=== PATIENT | male | born 1975 | race Caucasian/White ===

== ENCOUNTER 2019-06-19 07:23 | Observation (INO) | payer BC ==
[2019-06-19] MEDS ORDERED: Morphine 4 MG/ML Syringe IVPUSH ONE ×2 (07:36→07:47)
[2019-06-19] MEDS ORDERED: Aspirin 81 MG Tab.Chew PO ONE (07:36)
[2019-06-19] MEDS ORDERED: Ondansetron 4 MG/2 ML SDV IVPUSH ONE (07:39)
[2019-06-19] MEDS: Nitroglycerin 0.4 MG Tab.SL SL PRN ×3 (07:40→07:50)
--- NOTE | 2019-06-19 07:40 | EDM.PDOC ---
ED HPI GENERAL MEDICAL PROBLEM - General Chief Complaint: Chest Pain Stated Complaint: CHEST PAIN, NAUSEA Time Seen by Provider: 06/19/19 07:35 Source of Information: Reports: Patient History Limitations: Reports: No Limitations - History of Present Illness INITIAL COMMENTS - FREE TEXT/NARRATIVE: This is a 44-year-old gentleman who presents to the emergency room with chest pain. Patient states the pain initiated in his abdomen then moved to his chest. Patient states his chest feels like he needs to get gas out. Patient has no history of high blood pressure, diabetes, smoking, family medical history. Patient is on no medications at all. Patient does not take illicit drugs. Complaining of a dull pain to his chest. Onset: Today Duration: Hour(s):, Heavy Location: Reports: Chest Quality: Reports: Dull Severity: Severe Improves with: Reports: None Worsens with: Reports: None Associated Symptoms: Reports: Chest Pain, Nausea/Vomiting. Denies: Diaphoresis , Fever/Chills, Headaches, Loss of Appetite chest Pain Score (Numeric/FACES): 9 - Related Data Allergies Allergy/AdvReac Type Severity Reaction Status Date / Time No Known Allergies Allergy Verified 06/19/19 07:31 Home Meds: Home Meds . [No Known Home Meds] 06/19/19 [History] ED ROS GENERAL - Review of Systems Review Of Systems: See Below Constitutional: Reports: No Symptoms HEENT: Reports: No Symptoms Respiratory: Reports: No Symptoms Cardiovascular: Reports: Chest Pain Endocrine: Reports: No Symptoms GI/Abdominal: Reports: Abdominal Pain : Reports: No Symptoms Musculoskeletal: Reports: No Symptoms Skin: Reports: No Symptoms Neurological: Reports: No Symptoms Psychiatric: Reports: No Symptoms Hematologic/Lymphatic: Reports: No Symptoms Immunologic: Reports: No Symptoms ED EXAM, GENERAL - Physical Exam Exam: See Below Exam Limited By: No Limitations General Appearance: Alert, WD/WN, Anxious, Moderate Distress Eye Exam: Bilateral Eye: Normal Fundi, Normal Inspection, PERRL Ears: Normal External Exam, Normal Canal, Hearing Grossly Normal, Normal TMs Ear Exam: Bilateral Ear: Auricle Normal, Canal Normal, TM normal Nose: Normal Inspection, Normal Mucosa, No Blood Throat/Mouth: Normal Inspection, Normal Lips, Normal Teeth, Normal Gums, Normal Oropharynx, Normal Voice Head: Atraumatic, Normocephalic Neck: Normal Inspection, Supple, Non-Tender Respiratory/Chest: No Respiratory Distress, Lungs Clear, Normal Breath Sounds, No Accessory Muscle Use, Chest Non-Tender Cardiovascular: Normal Peripheral Pulses, Regular Rate, Rhythm, No Edema, No Gallop GI/Abdominal: Normal Bowel Sounds, Soft, Non-Tender, No Organomegaly, No Distention, No Abnormal Bruit, No Mass. No: Guarding, Rigid, Rebound (Male) Exam: Deferred Rectal (Males) Exam: Deferred Back Exam: Normal Inspection, Full Range of Motion Neurological: Alert, Oriented, CN II-XII Intact, Normal Cognition, Normal Gait, Normal Reflexes, No Motor/Sensory Deficits Psychiatric: Normal Affect, Normal Mood Skin Exam: Warm, Dry, Intact, Normal Color Lymphatic: No Adenopathy EKG INTERPRETATION EKG Date: 06/19/19 Time: 07:41 Rhythm: NSR Manquin: Normal P-Wave: Present QRS: Normal QT: Normal Comparison: NA - No Prior EKG EKG Interpretation Comments: And is bradycardia rate 55, early repolarization. No evidence of acute [place] at this time Course - Vital Signs Text/Narrative:: Initial evaluation the patient is a 44-year-old male with no known cardiac history with few risk factors except being a 44-year-old male. Presents to the emergency room with abdominal pain initially then radiating to his chest. Patient says he is in pain at this time dull chest pain. Patient is not diaphoretic. Patient is on no medications at this time. Patient does seem like he is having chest pain. Initially physical exam is negative except for subjective chest pain. Patient is a thin male appears to be in moderate distress. Patient given morphine for pain, aspirin and oxygen. Patient also given Zofran and nitro sublingual. Cardiac work-up has been ensued at this time. Patient's EKG is not acute but does show some early repolarization. Patient is very thin with a BMI of 23.7. Patient evaluated at 7:30 AM. Reevaluation of patient 11:50 AM. Patient is now has pain in his abdomen. CT scan of his chest and abdomen are negative. Patient's LFTs are normal patient' s cardiac enzymes are normal also. I have discussed the case with the hospitalist on-call she has agreed to admit the patient with a diagnosis of intractable abdominal pain. Patient will be admitted to telemetry observation Last Recorded V/S: Last Vital Signs Temp 96.9 F 06/19/19 07:32 Pulse 61 06/19/19 11:25 Resp 16 06/19/19 11:25 BP 129/73 06/19/19 11:25 Pulse Ox 97 06/19/19 11:25 - Orders/Labs/Meds Orders: Active Orders 24 hr Category Date Time Status EKG 12 Lead [EKG Documentation Completion] [RC] ROUTINE Care 06/19/19 07:36 Active EKG Documentation Completion [RC] STAT Care 06/19/19 07:37 Active TROPONIN I [CHEM] Stat Lab 06/19/19 11:04 Received Labs: Laboratory Tests 06/19/19 06/19/19 06/19/19 Range/Units 07:30 07:30 07:30 WBC 9.59 (4.0-11.0) K/uL RBC 4.58 (4.50-5.90) M/uL Hgb 15.2 (13.0-17.0) g/dL Hct 45.7 (38.0-50.0) % MCV 99.8 H (80.0-98.0) fL MCH 33.2 H (27.0-32.0) pg MCHC 33.3 (31.0-37.0) g/dL RDW Std Deviation 46.3 (28.0-62.0) fl RDW Coeff of Ave 13 (11.0-15.0) % Plt Count 214 (150-400) K/uL MPV 10.10 (7.40-12.00) fL Neut % (Auto) 85.1 H (48.0-80.0) % Lymph % (Auto) 9.8 L (16.0-40.0) % Mccreary % (Auto) 4.4 (0.0-15.0) % Eos % (Auto) 0.6 (0.0-7.0) % Baso % (Auto) 0.1 (0.0-1.5) % Neut # (Auto) 8.2 H (1.4-5.7) K/uL Lymph # (Auto) 0.9 (0.6-2.4) K/uL Mccreary # (Auto) 0.4 (0.0-0.8) K/uL Eos # (Auto) 0.1 (0.0-0.7) K/uL Baso # (Auto) 0.0 (0.0-0.1) K/uL Nucleated RBC % 0.0 /100WBC Nucleated RBCs # 0 K/uL INR 1.03 Sodium 139 (136-148) mmol/L Potassium 4.6 (3.5-5.1) mmol/L Chloride 102 (98-107) mmol/L Carbon Dioxide 28.1 (21.0-32.0) mmol/L BUN 19 H (7.0-18.0) mg/dL Creatinine 1.2 (0.8-1.3) mg/dL Est Cr Clr Drug Dosing 94.87 mL/min Estimated GFR (MDRD) > 60.0 ml/min Glucose 150 H (74-106) mg/dL Calcium 8.8 (8.5-10.1) mg/dL Magnesium 1.7 L (1.8-2.4) mg/dL Total Bilirubin 0.4 (0.2-1.0) mg/dL AST 26 (15-37) IU/L ALT 40 (14-63) IU/L Alkaline Phosphatase 83 (46-116) U/L Troponin I < 0.050 (0.000-0.056) ng/mL Total Protein 7.5 (6.4-8.2) g/dL Albumin 4.4 (3.4-5.0) g/dL Globulin 3.1 (2.6-4.0) g/dL Albumin/Globulin Ratio 1.4 (0.9-1.6) Amylase (25-115) U/L Lipase (73-393) U/L 06/19/19 06/19/19 Range/Units 07:30 07:30 WBC (4.0-11.0) K/uL RBC (4.50-5.90) M/uL Hgb (13.0-17.0) g/dL Hct (38.0-50.0) % MCV (80.0-98.0) fL MCH (27.0-32.0) pg MCHC (31.0-37.0) g/dL RDW Std Deviation (28.0-62.0) fl RDW Coeff of Ave (11.0-15.0) % Plt Count (150-400) K/uL MPV (7.40-12.00) fL Neut % (Auto) (48.0-80.0) % Lymph % (Auto) (16.0-40.0) % Mccreary % (Auto) (0.0-15.0) % Eos % (Auto) (0.0-7.0) % Baso % (Auto) (0.0-1.5) % Neut # (Auto) (1.4-5.7) K/uL Lymph # (Auto) (0.6-2.4) K/uL Mccreary # (Auto) (0.0-0.8) K/uL Eos # (Auto) (0.0-0.7) K/uL Baso # (Auto) (0.0-0.1) K/uL Nucleated RBC % /100WBC Nucleated RBCs # K/uL INR Sodium (136-148) mmol/L Potassium (3.5-5.1) mmol/L Chloride (98-107) mmol/L Carbon Dioxide (21.0-32.0) mmol/L BUN (7.0-18.0) mg/dL Creatinine (0.8-1.3) mg/dL Est Cr Clr Drug Dosing mL/min Estimated GFR (MDRD) ml/min Glucose (74-106) mg/dL Calcium (8.5-10.1) mg/dL Magnesium (1.8-2.4) mg/dL Total Bilirubin (0.2-1.0) mg/dL AST (15-37) IU/L ALT (14-63) IU/L Alkaline Phosphatase (46-116) U/L Troponin I (0.000-0.056) ng/mL Total Protein (6.4-8.2) g/dL Albumin (3.4-5.0) g/dL Globulin (2.6-4.0) g/dL Albumin/Globulin Ratio (0.9-1.6) Amylase 56 (25-115) U/L Lipase 110 (73-393) U/L Meds: Medications Discontinued Medications Generic Name Dose Route Start Last Admin Trade Name Freq PRN Reason Stop Dose Admin Aspirin 324 mg 06/19/19 07:36 06/19/19 07:40 Aspirin PO 06/19/19 07:37 324 mg ONETIME ONE Administration Al Hydroxide/Mg Hydroxide 15 0 ml 06/19/19 07:56 06/19/19 07:59 ml/ Metoclopramide HCl 5 mg/ PO 06/19/19 07:57 25 each Lidocaine HCl 5 ml ONETIME ONE Administration Hydromorphone HCl 1 mg 06/19/19 08:11 06/19/19 08:15 Dilaudid IVPUSH 06/19/19 08:12 1 mg ONETIME ONE Administration Metoclopramide HCl 5 mg 06/19/19 09:42 06/19/19 10:05 Reglan IVPUSH 06/19/19 09:43 5 mg ONETIME ONE Administration Morphine Sulfate 4 mg 06/19/19 07:36 06/19/19 07:42 Morphine IVPUSH 06/19/19 07:37 4 mg ONETIME ONE Administration Morphine Sulfate 4 mg 06/19/19 07:47 06/19/19 07:50 Morphine IVPUSH 06/19/19 07:48 4 mg ONETIME ONE Administration Nitroglycerin 0.4 mg 06/19/19 07:36 06/19/19 07:50 Nitrostat SL 0.4 mg Q5M PRN Administration Chest Pain Ondansetron HCl 4 mg 06/19/19 07:39 06/19/19 07:41 Zofran IVPUSH 06/19/19 07:40 4 mg ONETIME ONE Administration Departure - Departure Time of Disposition: 11:52 Disposition: Refer to Observation Condition: Good Clinical Impression: Intractable abdominal pain Referrals: PCP,None [Primary Care Provider] - Forms: ED Department Discharge Sepsis Event Note - Evaluation Sepsis Screening Result: No Definite Risk - Focused Exam Vital Signs: Vital Signs Temp Pulse Resp BP BP Pulse Ox 06/19/19 11:25 61 16 129/73 97 06/19/19 10:06 73 16 152/93 H 99 06/19/19 08:47 42 L 16 141/83 H 93 L 06/19/19 08:02 58 L 20 128/70 98 06/19/19 07:50 142/93 H 06/19/19 07:45 141/88 H 06/19/19 07:40 166/97 H 06/19/19 07:32 96.9 F 57 L 20 159/96 H 99 Date Exam was Performed: 06/19/19 Time Exam was Performed: 11:50 - My Orders Last 24 Hours: My Active Orders 06/19/19 07:36 EKG 12 Lead [EKG Documentation Completion] [RC] ROUTINE 06/19/19 07:37 EKG Documentation Completion [RC] STAT 06/19/19 11:04 TROPONIN I [CHEM] Stat - Assessment/Plan Last 24 Hours: My Active Orders 06/19/19 07:36 EKG 12 Lead [EKG Documentation Completion] [RC] ROUTINE 06/19/19 07:37 EKG Documentation Completion [RC] STAT 06/19/19 11:04 TROPONIN I [CHEM] Stat
[2019-06-19] MEDS ORDERED: Alum Hydrox/Mag Hydrox/Simeth 15 ML, Metoclopramide 5 MG, Lidocaine 2% 5 ML PO ONE ×3 (07:56)
[2019-06-19 08:03] LABS: BLOOD UREA NITROGEN,BUN 19 mg/dL (7.0-18.0); CARBON DIOXIDE,CO2 28.1 mmol/L (21.0-32.0); CHLORIDE,CL 102 mmol/L (98-107); GLUCOSE RANDOM 150 mg/dL (74-106); POTASSIUM,K 4.6 mmol/L (3.5-5.1); SODIUM,NA 139 mmol/L (136-148)
[2019-06-19] MEDS ORDERED: HYDROmorphone 1 MG/ML Syringe IVPUSH ONE (08:11)
--- NOTE | 2019-06-19 08:22 | CR ---
Chest: Portable view of the chest was obtained. Comparison: No prior chest imaging is available. Heart size is normal. Upper mediastinum is normal. Lungs are clear with no acute parenchymal change. Bony structures are grossly intact. Impression: 1. Nothing acute is appreciated on portable chest x-ray. Diagnostic code #1 This report was dictated in MDT
--- NOTE | 2019-06-19 08:57 | CT ---
CT chest Technique: Multiple axial sections were obtained from above the lung apices inferiorly through the lung bases. Intravenous contrast was utilized. Study performed as a pulmonary angiogram protocol. Findings: Pulmonary arteries are well opacified. No filling defects are seen to indicate pulmonary embolism. Mediastinum and hilar region show no adenopathy. Aorta shows no aneurysm. Lungs are clear with no acute parenchymal change. Small portion of the visualized upper abdominal structures appear within normal limits. Bone window settings were reviewed which shows no discrete osseous finding. Impression: 1. No findings pulmonary embolism. 2. Nothing acute is appreciated on other portions of the chest CT exam. Diagnostic code #1 This report was dictated in MDT
[2019-06-19] MEDS ORDERED: Metoclopramide 10 MG/2 ML SDV IVPUSH ONE ×2 (09:42→12:18)
--- NOTE | 2019-06-19 11:20 | CT ---
CT abdomen and pelvis Technique: Multiple axial sections were obtained from above the dome of the diaphragm inferiorly through the pubic symphysis. Intravenous and oral contrast not utilized. There is IV contrast being seen within the kidney collecting systems from recently performed CT chest study. Findings: Visualized lung bases show nothing acute. Noncontrast appearance of the liver shows no focal abnormality. Spleen appears within normal limits. Pancreas shows no discrete abnormality. Adrenal glands show no nodule. Kidneys show no hydronephrosis. Contrast is seen within the collecting systems of both kidneys from recent CT study of the chest. Contrast is noted within nondilated ureters as well as contrast being seen within the bladder. Aorta shows atherosclerotic calcifications without aneurysm. Gallbladder contains no calcified gallstones. No retroperitoneal adenopathy or mesenteric abnormalities are seen. No pelvic mass or adenopathy is seen. No free fluid or inflammatory change is appreciated. Appendix felt to be visualized and is normal in size. Bone window settings were reviewed which show spondylolytic defects at L5-S1 with minimal spondylolisthesis at L5-S1 and mild posterior disc space narrowing at L5-S1. Impression: 1. 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 2. Nothing acute is definitely appreciated on noncontrast CT study of the abdomen and pelvis. Note: Contrast is noted within the kidney collecting systems and ureters from recently performed chest CT study.
[2019-06-19] MEDS ORDERED: Iopamidol 755 MG/ML 500 ML Multipack Bottle IVPUSH STA (11:55)
[2019-06-19] MEDS ORDERED: Pantoprazole 80 MG in Sodium Chloride 0.9% 20 ML IVPUSH ONE (12:05)
[2019-06-19] MEDS ORDERED: Haloperidol Lactate 5 MG/ML SDV IM ONE (12:05)
--- NOTE | 2019-06-19 12:57 | PCM.HP.2 ---
H&P History of Present Illness - General Date of Service: 06/19/19 Admit Problem/Dx: Admission Diagnosis/Problem Admission Diagnosis/Problem Intractable abdominal pain Source of Information: Patient History Limitations: Reports: No Limitations - History of Present Illness Initial Comments - Free Text/Narative: This 44 year old otherwise healthy male presented to the ED today with concerns of abdominal pain which moved to his chest early this morning. He reports the pain started suddenly this morning at 0400 approximately. He reports the pain is a cramping, squeezing that comes and goes, causes him nausea and dry heaving but no vomiting. Pain is located to lower abdomen. No peritoneal signs. He had a normal bowel movement, with no change in color or consistency from normal BMs. He reports the pain moved to mid sternal and feels full and dull in nature. He reports he was diaphoretic and clammy initially. Never had anything like this in the past. Years ago had some heartburn, but none since or recently. He denies alcohol use or illicit drug use. No OTC NSAID use. he reports he eats very clean, no processed foods only vegetables/fruit and lean protein. No recent sick contacts. He denies fevers or chills. No palpitations. No SOB. No urinary concerns. No diarrhea or black or bloody stools. In the ED No leukocytosis noted, INR 1.03, Na 139 K+ 4.6, BUN 19, Cr 1.2. Glucose 150. Mg 1.7. CT abdominal/pelvis negative, CT ang chest negative as well. CXR negative. He was given Morphine, Haldol, Dilaudid, ZOfran, Reglan and Nitro for pain. Reports it is somewhat better and Dilaudid and Relgan helped best. he was also given Protonix and GI cocktail. He will be admitted observation for intractable abdominal pain. chest Pain Score (Numeric/FACES): 9 - Related Data Allergies/Adverse Reactions: Allergies Allergy/AdvReac Type Severity Reaction Status Date / Time No Known Allergies Allergy Verified 06/19/19 07:31 Home Medications: Home Meds . [No Known Home Meds] 06/19/19 [History] Past Medical History HEENT History: Reports: None Cardiovascular History: Reports: None. Denies: CAD, High Cholesterol, Hypertension Respiratory History: Reports: None. Denies: COPD Gastrointestinal History: Reports: None. Denies: GERD Genitourinary History: Reports: None. Denies: Chronic Renal Insuffiency Musculoskeletal History: Reports: None Endocrine/Metabolic History: Reports: None. Denies: Diabetes, Type II, Obesity/ BMI 30+ - Infectious Disease History Infectious Disease History: Reports: None - Past Surgical History GI Surgical History: Reports: Hernia Repair/Other Social & Family History - Family History Family Medical History: Noncontributory - Tobacco Use Smoking Status *Q: Never Smoker - Alcohol Use Alcohol Use History: No - Recreational Drug Use Recreational Drug Use: No H&P Review of Systems - Review of Systems: Review Of Systems: See Below General: Reports: No Symptoms. Denies: Fever, Chills, Malaise HEENT: Reports: No Symptoms. Denies: Headaches, Sinus Congestion, Vertigo Pulmonary: Reports: No Symptoms. Denies: Shortness of Breath Cardiovascular: Reports: No Symptoms. Denies: Chest Pain Gastrointestinal: Reports: Abdominal Pain, Nausea. Denies: Black Stool, Bloody Stool, Constipation, Diarrhea, Vomiting Genitourinary: Reports: No Symptoms. Denies: Dysuria, Frequency, Burning Musculoskeletal: Reports: No Symptoms Skin: Reports: No Symptoms Psychiatric: Reports: No Symptoms Neurological: Reports: No Symptoms Hematologic/Lymphatic: Reports: No Symptoms Immunologic: Reports: No Symptoms Exam - Exam Exam: See Below - Vital Signs Vital Signs: Last Vital Signs Temp 96.9 F 06/19/19 07:32 Pulse 64 06/19/19 12:27 Resp 16 06/19/19 12:27 BP 149/92 H 06/19/19 12:27 Pulse Ox 96 06/19/19 12:27 Weight: 86.183 kg - Exam General: Alert, Oriented, Cooperative, Mild Distress (abdominal pain and nausea) HEENT: Conjunctiva Clear, Mucosa Moist & Holden, Posterior Pharynx Clear Lungs: Clear to Auscultation, Normal Respiratory Effort Cardiovascular: Regular Rate, Regular Rhythm GI/Abdominal Exam: Normal Bowel Sounds, Soft, Tender (lower abdomen) Back Exam: Normal Inspection, Full Range of Motion Extremities: Normal Inspection, Normal Range of Motion, Non-Tender, No Pedal Edema Neuro Extensive - Mental Status: Alert, Oriented x3 Neuro Extensive - Motor, Sensory, Reflexes: CN II-XII Intact Psychiatric: Alert, Normal Affect, Normal Mood - Patient Data Lab Results Last 24 hrs: Laboratory Results - last 24 hr 06/19/19 06/19/19 06/19/19 Range/Units 07:30 07:30 07:30 WBC 9.59 (4.0-11.0) K/uL RBC 4.58 (4.50-5.90) M/uL Hgb 15.2 (13.0-17.0) g/dL Hct 45.7 (38.0-50.0) % MCV 99.8 H (80.0-98.0) fL MCH 33.2 H (27.0-32.0) pg MCHC 33.3 (31.0-37.0) g/dL RDW Std Deviation 46.3 (28.0-62.0) fl RDW Coeff of Ave 13 (11.0-15.0) % Plt Count 214 (150-400) K/uL MPV 10.10 (7.40-12.00) fL Neut % (Auto) 85.1 H (48.0-80.0) % Lymph % (Auto) 9.8 L (16.0-40.0) % Stanly % (Auto) 4.4 (0.0-15.0) % Eos % (Auto) 0.6 (0.0-7.0) % Baso % (Auto) 0.1 (0.0-1.5) % Neut # (Auto) 8.2 H (1.4-5.7) K/uL Lymph # (Auto) 0.9 (0.6-2.4) K/uL Stanly # (Auto) 0.4 (0.0-0.8) K/uL Eos # (Auto) 0.1 (0.0-0.7) K/uL Baso # (Auto) 0.0 (0.0-0.1) K/uL Nucleated RBC % 0.0 /100WBC Nucleated RBCs # 0 K/uL INR 1.03 Sodium 139 (136-148) mmol/L Potassium 4.6 (3.5-5.1) mmol/L Chloride 102 (98-107) mmol/L Carbon Dioxide 28.1 (21.0-32.0) mmol/L BUN 19 H (7.0-18.0) mg/dL Creatinine 1.2 (0.8-1.3) mg/dL Est Cr Clr Drug Dosing 94.87 mL/min Estimated GFR (MDRD) > 60.0 ml/min Glucose 150 H (74-106) mg/dL Calcium 8.8 (8.5-10.1) mg/dL Magnesium 1.7 L (1.8-2.4) mg/dL Total Bilirubin 0.4 (0.2-1.0) mg/dL AST 26 (15-37) IU/L ALT 40 (14-63) IU/L Alkaline Phosphatase 83 (46-116) U/L Troponin I < 0.050 (0.000-0.056) ng/mL Total Protein 7.5 (6.4-8.2) g/dL Albumin 4.4 (3.4-5.0) g/dL Globulin 3.1 (2.6-4.0) g/dL Albumin/Globulin Ratio 1.4 (0.9-1.6) Amylase (25-115) U/L Lipase (73-393) U/L 06/19/19 06/19/19 06/19/19 Range/Units 07:30 07:30 11:04 WBC (4.0-11.0) K/uL RBC (4.50-5.90) M/uL Hgb (13.0-17.0) g/dL Hct (38.0-50.0) % MCV (80.0-98.0) fL MCH (27.0-32.0) pg MCHC (31.0-37.0) g/dL RDW Std Deviation (28.0-62.0) fl RDW Coeff of Ave (11.0-15.0) % Plt Count (150-400) K/uL MPV (7.40-12.00) fL Neut % (Auto) (48.0-80.0) % Lymph % (Auto) (16.0-40.0) % Stan[place] % (Auto) (0.0-15.0) % Eos % (Auto) (0.0-7.0) % Baso % (Auto) (0.0-1.5) % Neut # (Auto) (1.4-5.7) K/uL Lymph # (Auto) (0.6-2.4) K/uL Stanly # (Auto) (0.0-0.8) K/uL Eos # (Auto) (0.0-0.7) K/uL Baso # (Auto) (0.0-0.1) K/uL Nucleated RBC % /100WBC Nucleated RBCs # K/uL INR Sodium (136-148) mmol/L Potassium (3.5-5.1) mmol/L Chloride (98-107) mmol/L Carbon Dioxide (21.0-32.0) mmol/L BUN (7.0-18.0) mg/dL Creatinine (0.8-1.3) mg/dL Est Cr Clr Drug Dosing mL/min Estimated GFR (MDRD) ml/min Glucose (74-106) mg/dL Calcium (8.5-10.1) mg/dL Magnesium (1.8-2.4) mg/dL Total Bilirubin (0.2-1.0) mg/dL AST (15-37) IU/L ALT (14-63) IU/L Alkaline Phosphatase (46-116) U/L Troponin I < 0.050 (0.000-0.056) ng/mL Total Protein (6.4-8.2) g/dL Albumin (3.4-5.0) g/dL Globulin (2.6-4.0) g/dL Albumin/Globulin Ratio (0.9-1.6) Amylase 56 (25-115) U/L Lipase 110 (73-393) U/L Result Diagrams: 06/19/19 07:30 06/19/19 07:30 EKG INTERPRETATION EKG Date: 06/19/19 Rhythm: NSR P-Wave: Present QRS: Normal ST-T: Normal QT: Normal Sepsis Event Note - Evaluation Sepsis Screening Result: No Definite Risk - Focused Exam Vital Signs: Vital Signs Temp Pulse Resp BP BP Pulse Ox 06/19/19 12:27 64 16 149/92 H 96 06/19/19 11:25 61 16 129/73 97 06/19/19 10:06 73 16 152/93 H 99 06/19/19 08:47 42 L 16 141/83 H 93 L 06/19/19 08:02 58 L 20 128/70 98 06/19/19 07:50 142/93 H 06/19/19 07:45 141/88 H 06/19/19 07:40 166/97 H 06/19/19 07:32 96.9 F 57 L 20 159/96 H 99 Date Exam was Performed: 06/19/19 Time Exam was Performed: 13:07 - Problem List (1) Intractable abdominal pain SNOMED Code(s): 04105647 ICD Code: R10.9 - UNSPECIFIED ABDOMINAL PAIN Status: Acute Current Visit : Yes Problem List Initiated/Reviewed/Updated: Yes Orders Last 24hrs: Active Orders 24 hr Category Date Time Status Admission Status [Patient Status] [ADT] Stat ADT 06/19/19 11:54 Active EKG 12 Lead [EKG Documentation Completion] [RC] ROUTINE Care 06/19/19 07:36 Active EKG Documentation Completion [RC] STAT Care 06/19/19 07:37 Active H PYLORI STOOL ANTIGEN [MREF] Urgent Lab 06/19/19 12:56 Ordered STOOL CULTURE/SHIGA TOXIN [MREF] Urgent Lab 06/19/19 12:56 Ordered UA RFX CHRISTINE AND CULT IF INDIC [URIN] Urgent Lab 06/19/19 12:31 Ordered Pantoprazole [ProTONIX IV] 40 mg Med 06/19/19 21:00 Ordered Sodium Chloride 0.9% [Normal Saline] 10 ml IV Q12H Medication Orders Pantoprazole Sodium 40 mg/ (Sodium Chloride) 10 mls @ 300 mls/hr IV Q12H MARIA G Assessment/Plan Comment:: This 44 year old male admitted with intractable abdominal pain 1. Abdominal pain - Continue Dilaudid PRN - Continue Zofran and Reglan PRN nausea. Will also give Haldol q8h PRN nausea if needed - Obtain UA as well as stool cultures, H. pylori, - Consider gastritis, cystitis. - NPO for now, ice chips ok - Protonix BID VTE prophylaxis: SCDs, ambulation Dispo: 1-2 days - Mortality Measure Prognosis:: Good
[2019-06-19] MEDS ORDERED: Metoclopramide 10 MG/2 ML SDV IVPUSH PRN (13:05)
[2019-06-19] MEDS ORDERED: diphenhydrAMINE 50 MG/ML SDV IVPUSH ONE (13:11)
[2019-06-19] MEDS ORDERED: Haloperidol Lactate 5 MG/ML SDV IM PRN (13:13)
[2019-06-19] MEDS: Sodium Chloride 0.9% 1,000 ML IV SCH ×2 (13:18→22:11)
[2019-06-19] MEDS: Ondansetron 4 MG/2 ML SDV IVPUSH PRN ×2 (15:38→20:48)
[2019-06-19] MEDS: HYDROmorphone 1 MG/ML Syringe IVPUSH PRN ×2 (15:38→20:49)
[2019-06-19] MEDS: Pantoprazole 40 MG in Sodium Chloride 0.9% 10 ML IV SCH (20:28)
[2019-06-20] MEDS: HYDROmorphone 1 MG/ML Syringe IVPUSH PRN (03:13)
[2019-06-20 06:07] LABS: BLOOD UREA NITROGEN,BUN 14 mg/dL (7.0-18.0); CARBON DIOXIDE,CO2 28.3 mmol/L (21.0-32.0); CHLORIDE,CL 104 mmol/L (98-107); GLUCOSE RANDOM 111 mg/dL (74-106); LIPASE 95 U/L (73-393); POTASSIUM,K 4.1 mmol/L (3.5-5.1); SODIUM,NA 139 mmol/L (136-148)
[2019-06-20] MEDS: Sodium Chloride 0.9% 1,000 ML IV SCH (06:35)
[2019-06-20] MEDS: Pantoprazole 40 MG in Sodium Chloride 0.9% 10 ML IV SCH (09:00)
--- NOTE | 2019-06-20 09:02 | PCM.DCSUM1 ---
Discharge Summary - Hospital Course Brief History: This 44 year old otherwise healthy male presented to the ED today with concerns of abdominal pain which moved to his chest early this morning. He reports the pain started suddenly this morning at 0400 approximately. He reports the pain is a cramping, squeezing that comes and goes , causes him nausea and dry heaving but no vomiting. Pain is located to lower abdomen. No peritoneal signs. He had a normal bowel movement, with no change in color or consistency from normal BMs. He reports the pain moved to mid sternal and feels full and dull in nature. He reports he was diaphoretic and clammy initially. Never had anything like this in the past. Years ago had some heartburn, but none since or recently. He denies alcohol use or illicit drug use. No OTC NSAID use. he reports he eats very clean, no processed foods only vegetables/fruit and lean protein. No recent sick contacts. He denies fevers or chills. No palpitations. No SOB. No urinary concerns. No diarrhea or black or bloody stools. In the ED No leukocytosis noted, INR 1.03, Na 139 K+ 4.6, BUN 19 , Cr 1.2. Glucose 150. Mg 1.7. CT abdominal/pelvis negative, CT ang chest negative as well. CXR negative. He was given Morphine, Haldol, Dilaudid, ZOfran , Reglan and Nitro for pain. Reports it is somewhat better and Dilaudid and Relgan helped best. he was also given Protonix and GI cocktail. He will be admitted observation for intractable abdominal pain. Diagnosis: Stroke: No - Discharge Data Discharge Date: 06/20/19 Discharge Disposition: Home, Self-Care 01 Condition: Stable - Referral to Home Health Primary Care Physician: PCP None - Discharge Diagnosis/Problem(s) (1) Intractable abdominal pain SNOMED Code(s): 00486620 ICD Code: R10.9 - UNSPECIFIED ABDOMINAL PAIN Status: Acute - Patient Summary/Data Hospital Course: Admitting Diagnoses: Intractable abdominal pain Chest pain Discharge Diagnoses: Intractable abdominal pain Chest pain Lyle was admitted for intractable abdominal pain, which spread to chest. Likelihood of ACS is low, troponins negative and monitored on telemetry no further chest pain. Had sharp abdominal pain, which was relieved with flatus. No diarrhea during stay. This morning, he was very eager for discharge feeling much improved. Counseled to keep diet very light, liquid and soft for next day or two. He verbalized understanding, denies wanting follow up with PCP. I did service counselor on leaving stool sample as outpatient, which he agreed to. Will be notified if stool samples returned positive for H pylori or Campylobacter. He is to return to ED or clinic if concerns should arise. - Patient Instructions Diet: GI Soft/Low Residue/Low Fiber Activity: No Strenuous Activities, Rest and Relax Today Driving: Do Not Drive (no driving today due to receiving pain medications today. ) Showering/Bathing: May Shower Notify Provider of: Fever, Increased Pain, Swelling and Redness, Drainage, Nausea and/or Vomiting Other/Special Instructions: Collect stool sample and bring to lab for studies. - Discharge Plan *PRESCRIPTION DRUG MONITORING PROGRAM REVIEWED*: Not Applicable *COPY OF PRESCRIPTION DRUG MONITORING REPORT IN PATIENT TOMMY: Not Applicable Home Medications: Home Meds . [No Known Home Meds] 06/19/19 [History] Oxygen Therapy Mode: Room Air Patient Handouts: Abdominal Pain, Adult, [id number] - Discharge Summary/Plan Comment DC Time >30 min.: No - Patient Data Vitals - Most Recent: Last Vital Signs Temp 98.8 F 06/20/19 07:30 Pulse 51 L 06/20/19 07:30 Resp 17 06/20/19 07:30 BP 116/65 06/20/19 07:30 Pulse Ox 94 L 06/20/19 07:30 Weight - Most Recent: 86.183 kg I&O - Last 24 hours: Intake & Output 06/19/19 06/20/19 06/20/19 22:59 06:59 14:59 Intake Total 1584 Output Total 700 Balance 884 Lab Results - Last 24 hrs: Laboratory Results - last 24 hr 06/19/19 06/19/19 06/19/19 Range/Units 07:30 11:04 17:10 WBC (4.0-11.0) K/uL RBC (4.50-5.90) M/uL Hgb (13.0-17.0) g/dL Hct (38.0-50.0) % MCV (80.0-98.0) fL MCH (27.0-32.0) pg MCHC (31.0-37.0) g/dL RDW Std Deviation (28.0-62.0) fl RDW Coeff of Ave (11.0-15.0) % Plt Count (150-400) K/uL MPV (7.40-12.00) fL Neut % (Auto) (48.0-80.0) % Lymph % (Auto) (16.0-40.0) % [place] % (Auto) (0.0-15.0) % Eos % (Auto) (0.0-7.0) % Baso % (Auto) (0.0-1.5) % Neut # (Auto) (1.4-5.7) K/uL Lymph # (Auto) (0.6-2.4) K/uL [place] # (Auto) (0.0-0.8) K/uL Eos # (Auto) (0.0-0.7) K/uL Baso # (Auto) (0.0-0.1) K/uL Nucleated RBC % /100WBC Nucleated RBCs # K/uL Sodium (136-148) mmol/L Potassium (3.5-5.1) mmol/L Chloride (98-107) mmol/L Carbon Dioxide (21.0-32.0) mmol/L BUN (7.0-18.0) mg/dL Creatinine (0.8-1.3) mg/dL Est Cr Clr Drug Dosing mL/min Estimated GFR (MDRD) ml/min Glucose (74-106) mg/dL Calcium (8.5-10.1) mg/dL Magnesium (1.8-2.4) mg/dL Total Bilirubin (0.2-1.0) mg/dL AST (15-37) IU/L ALT (14-63) IU/L Alkaline Phosphatase (46-116) U/L Troponin I < 0.050 < 0.050 (0.000-0.056) ng/mL Total Protein (6.4-8.2) g/dL Albumin (3.4-5.0) g/dL Globulin (2.6-4.0) g/dL Albumin/Globulin Ratio (0.9-1.6) Amylase 56 (25-115) U/L Lipase (73-393) U/L Urine Color Urine Appearance Urine pH (5.0-8.0) Ur Specific [place] (1.001-1.035) Urine Protein (NEGATIVE) mg/dL Urine Glucose (UA) (NEGATIVE) mg/dL Urine Ketones (NEGATIVE) mg/dL Urine Occult Blood (NEGATIVE) Urine Nitrite (NEGATIVE) Urine Bilirubin (NEGATIVE) Urine Urobilinogen (<2.0) EU/dL Ur Leukocyte Esterase (NEGATIVE) 06/19/19 06/20/19 06/20/19 Range/Units 20:30 04:55 04:55 WBC 10.05 (4.0-11.0) K/uL RBC 4.34 L (4.50-5.90) M/uL Hgb 14.3 (13.0-17.0) g/dL Hct 43.0 (38.0-50.0) % MCV 99.1 H (80.0-98.0) fL MCH 32.9 H (27.0-32.0) pg MCHC 33.3 (31.0-37.0) g/dL RDW Std Deviation 45.8 (28.0-62.0) fl RDW Coeff of Ave 13 (11.0-15.0) % Plt Count 221 (150-400) K/uL MPV 10.30 (7.40-12.00) fL Neut % (Auto) 78.7 (48.0-80.0) % Lymph % (Auto) 12.9 L (16.0-40.0) % [place] % (Auto) 7.9 (0.0-15.0) % Eos % (Auto) 0.4 (0.0-7.0) % Baso % (Auto) 0.1 (0.0-1.5) % Neut # (Auto) 7.9 H (1.4-5.7) K/uL Lymph # (Auto) 1.3 (0.6-2.4) K/uL [place] # (Auto) 0.8 (0.0-0.8) K/uL Eos # (Auto) 0.0 (0.0-0.7) K/uL Baso # (Auto) 0.0 (0.0-0.1) K/uL Nucleated RBC % 0.0 /100WBC Nucleated RBCs # 0 K/uL Sodium 139 (136-148) mmol/L Potassium 4.1 (3.5-5.1) mmol/L Chloride 104 (98-107) mmol/L Carbon Dioxide 28.3 (21.0-32.0) mmol/L BUN 14 (7.0-18.0) mg/dL Creatinine 1.1 (0.8-1.3) mg/dL Est Cr Clr Drug Dosing 97.86 mL/min Estimated GFR (MDRD) > 60.0 ml/min Glucose 111 H (74-106) mg/dL Calcium 8.6 (8.5-10.1) mg/dL Magnesium 1.6 L (1.8-2.4) mg/dL Total Bilirubin 0.6 (0.2-1.0) mg/dL AST 22 (15-37) IU/L ALT 34 (14-63) IU/L Alkaline Phosphatase 75 (46-116) U/L Troponin I (0.000-0.056) ng/mL Total Protein 6.4 (6.4-8.2) g/dL Albumin 3.7 (3.4-5.0) g/dL Globulin 2.7 (2.6-4.0) g/dL Albumin/Globulin Ratio 1.4 (0.9-1.6) Amylase (25-115) U/L Lipase 95 (73-393) U/L Urine Color YELLOW Urine Appearance CLEAR Urine pH 6.5 (5.0-8.0) Ur Specific [place] 1.025 (1.001-1.035) Urine Protein NEGATIVE (NEGATIVE) mg/dL Urine Glucose (UA) NEGATIVE (NEGATIVE) mg/dL Urine Ketones 15 H (NEGATIVE) mg/dL Urine Occult Blood NEGATIVE (NEGATIVE) Urine Nitrite NEGATIVE (NEGATIVE) Urine Bilirubin NEGATIVE (NEGATIVE) Urine Urobilinogen 0.2 (<2.0) EU/dL Ur Leukocyte Esterase NEGATIVE (NEGATIVE) Med Orders - Current: Current Medications Haloperidol Lactate (Haldol) 5 mg IM Q8H PRN PRN Reason: Nausea Hydromorphone HCl (Dilaudid) 1 mg IVPUSH Q2H PRN PRN Reason: Pain (severe 7-10) Last Admin: 06/20/19 03:13 Dose: 1 mg Pantoprazole Sodium 40 mg/ (Sodium Chloride) 10 mls @ 300 mls/hr IV Q12H [facility] Last Admin: 06/20/19 09:00 Dose: Not Given Metoclopramide HCl (Reglan) 10 mg IVPUSH Q8H PRN PRN Reason: Nausea Ondansetron HCl (Zofran) 4 mg IVPUSH Q4H PRN PRN Reason: Nausea Last Admin: 06/19/19 20:48 Dose: 4 mg Discontinued Medications Aspirin (Aspirin) 324 mg PO ONETIME ONE Stop: 06/19/19 07:37 Last Admin: 06/19/19 07:40 Dose: 324 mg Al Hydroxide/Mg Hydroxide 15 ml/ Metoclopramide HCl 5 mg/Lidocaine HCl 5 ml 0 ml PO ONETIME ONE Stop: 06/19/19 07:57 Last Admin: 06/19/19 07:59 Dose: 25 each Diphenhydramine HCl (Benadryl) 25 mg IVPUSH ONETIME ONE Stop: 06/19/19 13:12 Last Admin: 06/19/19 13:51 Dose: 25 mg Haloperidol Lactate (Haldol) 5 mg IM ONETIME ONE Stop: 06/19/19 12:06 Last Admin: 06/19/19 12:17 Dose: 5 mg Hydromorphone HCl (Dilaudid) 1 mg IVPUSH ONETIME ONE Stop: 06/19/19 08:12 Last Admin: 06/19/19 08:15 Dose: 1 mg Pantoprazole Sodium 80 mg/ (Sodium Chloride) 20 mls @ 420 mls/hr IVPUSH ONETIME ONE Stop: 06/19/19 12:07 Last Admin: 06/19/19 12:16 Dose: 420 mls/hr Sodium Chloride (Normal Saline) 1,000 mls @ 125 mls/hr IV Q8H MARIA G Last Admin: 06/20/19 06:35 Dose: 125 mls/hr Iopamidol (Isovue Multipack-370 (76%)) 50 ml IVPUSH ONETIME STA Stop: 06/19/19 11:56 Last Admin: 06/19/19 11:55 Dose: 50 ml Metoclopramide HCl (Reglan) 5 mg IVPUSH ONETIME ONE Stop: 06/19/19 09:43 Last Admin: 06/19/19 10:05 Dose: 5 mg Metoclopramide HCl (Reglan) 5 mg IVPUSH ONETIME ONE Stop: 06/19/19 12:19 Last Admin: 06/19/19 12:25 Dose: 5 mg Morphine Sulfate (Morphine) 4 mg IVPUSH ONETIME ONE Stop: 06/19/19 07:37 Last Admin: 06/19/19 07:42 Dose: 4 mg Morphine Sulfate (Morphine) 4 mg IVPUSH ONETIME ONE Stop: 06/19/19 07:48 Last Admin: 06/19/19 07:50 Dose: 4 mg Nitroglycerin (Nitrostat) 0.4 mg SL Q5M PRN PRN Reason: Chest Pain Last Admin: 06/19/19 07:50 Dose: 0.4 mg Ondansetron HCl (Zofran) 4 mg IVPUSH ONETIME ONE Stop: 06/19/19 07:40 Last Admin: 06/19/19 07:41 Dose: 4 mg - Exam General: Reports: Alert, Oriented, Cooperative, No Acute Distress Cardiovascular: Reports: Regular Rate, Regular Rhythm GI/Abdominal Exam: Normal Bowel Sounds, Soft, Non-Tender Neurological: Reports: No New Focal Deficit Psy/Mental Status: Reports: Alert, Normal Affect, Normal Mood
== END 2019-06-20 09:40 | disposition home or self-care (01) ==
LOC: MW.ED 07:23 → MW.MS 11:54
PROVIDERS: ADMIT Student in an Organized Health Care Education/Training Program; ATTEND Student in an Organized Health Care Education/Training Program
DX: R10.30 Lower abdominal pain, unspecified (principal); R07.2 Precordial pain; R11.0 Nausea
CPT/HCPCS: 36415; 71045; 71275; 74176; 80053; 81003; 82150; 83690; 83735; 84484; 85025; 85610; 93005; 96372; 96374; 96375; 96376; 99285; A9270; C9113; J1170; J1200; J1630; J2270; J2405; J2765; J7030; J7050; Q9967; 96361; 99284; G0378

== ENCOUNTER 2019-06-30 09:48 | Emergency (ER) | payer BC ==
--- NOTE | 2019-06-30 10:12 | EDM.PDOC ---
ED HPI GENERAL MEDICAL PROBLEM - General Chief Complaint: Abdominal Pain Stated Complaint: ABDOMINAL PAIN Time Seen by Provider: 06/30/19 09:59 Source of Information: Reports: Patient History Limitations: Reports: No Limitations - History of Present Illness INITIAL COMMENTS - FREE TEXT/NARRATIVE: HISTORY AND PHYSICAL: History of present illness: Patient is a 44-year-old male who presents to the emergency room with complaints of lower abdominal pain which he describes as cramping and sharp stabbing since this morning. He states he did experience a similar episode approximately 10 days ago and was admitted for intractable abdominal pain. He was discharged with the intent of following up with her primary care provider, although states that he was unable to make an appointment. This morning he started having the similar pain and decided to come to the emergency room for evaluation. He does have some generalized nausea and dry heaving associated with the pain. Patient denies any fever, chills, headache, change in vision, syncope or near syncope. Denies any chest pain, back pain, shortness of breath or cough. Denies any diarrhea, constipation or dysuria. He states 2 days ago he did notice some blood in his stools, and within the last 24 hours. Patient has been eating and drinking appropriately. +Weekly marijuana user. Denies any alcohol abuse or any other recreational drug abuse. Review of systems: As per history of present illness and below otherwise all systems reviewed and negative. Past medical history: As per history of present illness and as reviewed below otherwise noncontributory. Surgical history: As per history of present illness and as reviewed below otherwise noncontributory. Social history: See social history for further information Family history: As per history of present illness and as reviewed below otherwise noncontributory. Physical exam: General: Well developed and well nourished 44 year old male. Alert and orientated. Nontoxic appearing and in no acute distress. VSS. HEENT: Atraumatic, normocephalic, pupils equal and reactive bilaterally, negative for conjunctival pallor or scleral icterus, mucous membranes moist, nontender, trachea midline. No drooling or trismus noted. No meningeal signs. No hot potato voice noted. Lungs: Clear to auscultation, breath sounds equal bilaterally, chest nontender. Heart: S1S2, regular rate and rhythm without overt murmur Abdomen: Soft, nondistended, generalized tenderness throughout. No rebound tenderness. Negative for masses or hepatosplenomegaly. Negative for costovertebral tenderness. Rectal: This was done with consent and a payroll bookkeeper at the bedside. No obvious hemorrhoids noted. No renetta blood noted. + Hemoccult stool Skin: Intact, warm, dry. No lesions or rashes noted. Extremities: Atraumatic, moves all extremities per self without difficulty or deficits, negative for cords or calf pain. Neurovascular unremarkable. Neuro: Awake, alert, oriented. Cranial nerves II through XII unremarkable. Cerebellum unremarkable. Motor and sensory unremarkable throughout. Exam nonfocal. Notes: 06/19/2019: Patient had a CT chest abdomen, pelvis which were normal. His CBC, CMP, Lipase, Amylase, UA were within normal limits. Upon patient arrival he is requesting Phenergan and Dilaudid, stating "its the only thing that works for me". Reviewed case with Dr Treviño for medication administration recommendation. Lab work is unremarkable. We discussed the need to follow up with primary care and/or general surgeon for his Hemoccult stools and chronic abdominal pain. With his labs being normal and recent normal CT scan, this doesn't appear to need to be emergently addressed. He is currently pain free and nausea has subsided. Supportive care measures were reviewed and discussed. Voices understanding and is agreeable to plan of care. Denies any further questions or concerns at this time. Diagnostics: CBC, CMP, Lipase, UA, Drug Screen Therapeutics: IV fluids, Halidol, Dilaudid Prescription: None Impression: Abdominal Pain GI bleed Plan: 1. Stop using marijuana, this could be the cause of your abdominal pain. 2. Milam diet, advance as tolerated. Increase your oral fluids to prevent dehydration. 3. Follow up with primary care; you need to establish with someone so they can manage your abdominal pain. 4. Return to the ED as needed and as discussed. Definitive disposition and diagnosis as appropriate pending reevaluation and review of above. Lower Abdomen Pain Score (Numeric/FACES): 8 - Related Data Allergies Allergy/AdvReac Type Severity Reaction Status Date / Time No Known Allergies Allergy Verified 06/30/19 10:06 Home Meds: Home Meds . [No Known Home Meds] 06/19/19 [History] Past Medical History HEENT History: Reports: None Cardiovascular History: Reports: None. Denies: CAD, High Cholesterol, Hypertension Respiratory History: Reports: None. Denies: COPD Gastrointestinal History: Reports: None. Denies: GERD Genitourinary History: Reports: None. Denies: Chronic Renal Insuffiency Musculoskeletal History: Reports: None Endocrine/Metabolic History: Reports: None. Denies: Diabetes, Type II, Obesity/ BMI 30+ - Infectious Disease History Infectious Disease History: Reports: None - Past Surgical History GI Surgical History: Reports: Hernia Repair/Other Social & Family History - Family History Family Medical History: Noncontributory ED ROS GENERAL - Review of Systems Review Of Systems: Comprehensive ROS is negative, except as noted in HPI. ED EXAM, GI/ABD - Physical Exam Exam: See Below (See dictation) Course - Vital Signs Last Recorded V/S: Last Vital Signs Temp 96.8 F L 06/30/19 09:58 Pulse 55 L 06/30/19 09:58 Resp 18 06/30/19 09:58 BP 161/94 H 06/30/19 09:58 Pulse Ox 99 06/30/19 09:58 - Orders/Labs/Meds Orders: Active Orders 24 hr Category Date Time Status Fecal Occult Blood Collection [RC] ASDIRECTED Care 06/30/19 10:15 Active Labs: Laboratory Tests 06/30/19 06/30/19 06/30/19 Range/Units 10:23 10:23 10:29 WBC 9.24 (4.0-11.0) K/uL RBC 4.45 L (4.50-5.90) M/uL Hgb 15.1 (13.0-17.0) g/dL Hct 44.0 (38.0-50.0) % MCV 98.9 H (80.0-98.0) fL MCH 33.9 H (27.0-32.0) pg MCHC 34.3 (31.0-37.0) g/dL RDW Std Deviation 45.4 (28.0-62.0) fl RDW Coeff of Ave 13 (11.0-15.0) % Plt Count 240 (150-400) K/uL MPV 9.90 (7.40-12.00) fL Neut % (Auto) 89.8 H (48.0-80.0) % Lymph % (Auto) 7.0 L (16.0-40.0) % [place] % (Auto) 3.0 (0.0-15.0) % Eos % (Auto) 0.1 (0.0-7.0) % Baso % (Auto) 0.1 (0.0-1.5) % Neut # (Auto) 8.3 H (1.4-5.7) K/uL Lymph # (Auto) 0.7 (0.6-2.4) K/uL [place] # (Auto) 0.3 (0.0-0.8) K/uL Eos # (Auto) 0.0 (0.0-0.7) K/uL Baso # (Auto) 0.0 (0.0-0.1) K/uL Nucleated RBC % 0.0 /100WBC Nucleated RBCs # 0 K/uL Sodium (136-148) mmol/L Potassium (3.5-5.1) mmol/L Chloride (98-107) mmol/L Carbon Dioxide (21.0-32.0) mmol/L BUN (7.0-18.0) mg/dL Creatinine (0.8-1.3) mg/dL Est Cr Clr Drug Dosing mL/min Estimated GFR (MDRD) ml/min Glucose (74-106) mg/dL Calcium (8.5-10.1) mg/dL Total Bilirubin (0.2-1.0) mg/dL AST (15-37) IU/L ALT (14-63) IU/L Alkaline Phosphatase (46-116) U/L Total Protein (6.4-8.2) g/dL Albumin (3.4-5.0) g/dL Globulin (2.6-4.0) g/dL Albumin/Globulin Ratio (0.9-1.6) Lipase (73-393) U/L Urine Color YELLOW Urine Appearance CLEAR Urine pH 6.5 (5.0-8.0) Ur Specific [place] 1.025 (1.001-1.035) Urine Protein NEGATIVE (NEGATIVE) mg/dL Urine Glucose (UA) NEGATIVE (NEGATIVE) mg/dL Urine Ketones NEGATIVE (NEGATIVE) mg/dL Urine Occult Blood NEGATIVE (NEGATIVE) Urine Nitrite NEGATIVE (NEGATIVE) Urine Bilirubin NEGATIVE (NEGATIVE) Urine Urobilinogen 0.2 (<2.0) EU/dL Ur Leukocyte Esterase NEGATIVE (NEGATIVE) Urine Opiates Screen NEGATIVE (NEGATIVE) Ur Oxycodone Screen NEGATIVE (NEGATIVE) Urine Methadone Screen NEGATIVE (NEGATIVE) Ur Barbiturates Screen NEGATIVE (NEGATIVE) Ur Phencyclidine Scrn NEGATIVE (NEGATIVE) Ur Amphetamine Screen NEGATIVE (NEGATIVE) U Methamphetamines Scrn NEGATIVE (NEGATIVE) U Benzodiazepines Scrn NEGATIVE (NEGATIVE) U Cocaine Metab Screen NEGATIVE (NEGATIVE) U Marijuana (THC) Screen NEGATIVE (NEGATIVE) 06/30/19 Range/Units 10:29 WBC (4.0-11.0) K/uL RBC (4.50-5.90) M/uL Hgb (13.0-17.0) g/dL Hct (38.0-50.0) % MCV (80.0-98.0) fL MCH (27.0-32.0) pg MCHC (31.0-37.0) g/dL RDW Std Deviation (28.0-62.0) fl RDW Coeff of Ave (11.0-15.0) % Plt Count (150-400) K/uL MPV (7.40-12.00) fL Neut % (Auto) (48.0-80.0) % Lymph % (Auto) (16.0-40.0) % [place] % (Auto) (0.0-15.0) % Eos % (Auto) (0.0-7.0) % Baso % (Auto) (0.0-1.5) % Neut # (Auto) (1.4-5.7) K/uL Lymph # (Auto) (0.6-2.4) K/uL [place] # (Auto) (0.0-0.8) K/uL Eos # (Auto) (0.0-0.7) K/uL Baso # (Auto) (0.0-0.1) K/uL Nucleated RBC % /100WBC Nucleated RBCs # K/uL Sodium 139 (136-148) mmol/L Potassium 4.0 (3.5-5.1) mmol/L Chloride 102 (98-107) mmol/L Carbon Dioxide 29.4 (21.0-32.0) mmol/L BUN 15 (7.0-18.0) mg/dL Creatinine 1.1 (0.8-1.3) mg/dL Est Cr Clr Drug Dosing 97.61 mL/min Estimated GFR (MDRD) > 60.0 ml/min Glucose 135 H (74-106) mg/dL Calcium 8.8 (8.5-10.1) mg/dL Total Bilirubin 0.5 (0.2-1.0) mg/dL AST 21 (15-37) IU/L ALT 31 (14-63) IU/L Alkaline Phosphatase 84 (46-116) U/L Total Protein 7.6 (6.4-8.2) g/dL Albumin 4.4 (3.4-5.0) g/dL Globulin 3.2 (2.6-4.0) g/dL Albumin/Globulin Ratio 1.4 (0.9-1.6) Lipase 134 (73-393) U/L Urine Color Urine Appearance Urine pH (5.0-8.0) Ur Specific [place] (1.001-1.035) Urine Protein (NEGATIVE) mg/dL Urine Glucose (UA) (NEGATIVE) mg/dL Urine Ketones (NEGATIVE) mg/dL Urine Occult Blood (NEGATIVE) Urine Nitrite (NEGATIVE) Urine Bilirubin (NEGATIVE) Urine Urobilinogen (<2.0) EU/dL Ur Leukocyte Esterase (NEGATIVE) Urine Opiates Screen (NEGATIVE) Ur Oxycodone Screen (NEGATIVE) Urine Methadone Screen (NEGATIVE) Ur Barbiturates Screen (NEGATIVE) Ur Phencyclidine Scrn (NEGATIVE) Ur Amphetamine Screen (NEGATIVE) U Methamphetamines Scrn (NEGATIVE) U Benzodiazepines Scrn (NEGATIVE) U Cocaine Metab Screen (NEGATIVE) U Marijuana (THC) Screen (NEGATIVE) Meds: Medications Discontinued Medications Generic Name Dose Route Start Last Admin Trade Name Erik PRN Reason Stop Dose Admin Haloperidol Lactate 5 mg 06/30/19 10:13 06/30/19 10:33 Haldol IM 06/30/19 10:14 5 mg ONETIME ONE Administration Hydromorphone HCl 1 mg 06/30/19 10:14 06/30/19 10:31 Dilaudid IVPUSH 06/30/19 10:15 1 mg ONETIME ONE Administration Sodium Chloride 1,000 mls @ 999 mls/hr 06/30/19 10:13 06/30/19 10:30 Normal Saline IV 06/30/19 11:13 999 mls/hr STAT ONE Administration Departure - Departure Time of Disposition: 11:17 Disposition: Home, Self-Care 01 Clinical Impression: Abdominal pain Qualifiers: Abdominal location: generalized Qualified Code(s): R10.84 - Generalized abdominal pain - Discharge Information Instructions: Abdominal Pain, Adult, [id number] Referrals: PCP,None [Primary Care Provider] - Forms: ED Department Discharge Additional Instructions: The following information is given to patients seen in the emergency department who are being discharged to home. This information is to outline your options for follow-up care. We provide all patients seen in our emergency department with a follow-up referral. The need for follow-up, as well as the timing and circumstances, are variable depending upon the specifics of your emergency department visit. If you don't have a primary care physician on staff, we will provide you with a referral. We always advise you to contact your personal physician following an emergency department visit to inform them of the circumstance of the visit and for follow-up with them and/or the need for any referrals to a consulting specialist. The emergency department will also refer you to a specialist when appropriate. This referral assures that you have the opportunity for follow-up care with a specialist. All of these measure are taken in an effort to provide you with optimal care, which includes your follow-up. Under all circumstances we always encourage you to contact your private physician who remains a resource for coordinating your care. When calling for follow-up care, please make the office aware that this follow-up is from your recent emergency room visit. If for any reason you are refused follow-up, please contact the [facility] Emergency Department at and asked to speak to the emergency department charge nurse. [facility] Primary Care [address] [place] [id number] [address] [id number] 1. Stop using marijuana, this could be the cause of your abdominal pain. 2. Milam diet, advance as tolerated. Increase your oral fluids to prevent dehydration. 3. Follow up with primary care; you need to establish with someone so they can manage your abdominal pain. 4. Return to the ED as needed and as discussed. Sepsis Event Note - Evaluation Sepsis Screening Result: No Definite Risk - Focused Exam Vital Signs: Vital Signs Temp Pulse Resp BP Pulse Ox 06/30/19 09:58 96.8 F L 55 L 18 161/94 H 99 Date Exam was Performed: 06/30/19 Time Exam was Performed: 13:39 - My Orders Last 24 Hours: My Active Orders 06/30/19 10:15 Fecal Occult Blood Collection [RC] ASDIRECTED - Assessment/Plan Last 24 Hours: My Active Orders 06/30/19 10:15 Fecal Occult Blood Collection [RC] ASDIRECTED
[2019-06-30] MEDS ORDERED: Sodium Chloride 0.9% 1,000 ML IV ONE (10:13)
[2019-06-30] MEDS ORDERED: Haloperidol Lactate 5 MG/ML SDV IM ONE (10:13)
[2019-06-30] MEDS ORDERED: HYDROmorphone 1 MG/ML Syringe IVPUSH ONE (10:14)
[2019-06-30 11:06] LABS: BLOOD UREA NITROGEN,BUN 15 mg/dL (7.0-18.0); CARBON DIOXIDE,CO2 29.4 mmol/L (21.0-32.0); CHLORIDE,CL 102 mmol/L (98-107); GLUCOSE RANDOM 135 mg/dL (74-106); LIPASE 134 U/L (73-393); SODIUM,NA 139 mmol/L (136-148)
== END 2019-06-30 11:34 | disposition home or self-care (01) ==
LOC: MW.ED 09:48
DX: K92.2 Gastrointestinal hemorrhage, unspecified (principal); Z98.890 Other specified postprocedural states
CPT/HCPCS: 80053; 80305; 81003; 83690; 85025; 96361; 96372; 96374; 99284; J1170; J1630; J7030